=== PATIENT | male | born 1970 | race Caucasian/White ===

== ENCOUNTER 2017-10-30 22:51 | Emergency (ER) | payer SELFPAY ==
[~2017-10-30] VITALS: Ht 172.7 cm; Wt 86.6 kg
[~2017-10-30 22:51] MED LIST: ZOFR4TAB3 SL
[2017-10-30 22:55] VITALS: BP 133/84; PULSE 77; RESP 18; TEMP 98; O2SAT 98
[2017-10-30] MEDS ORDERED: PROPARACAINE HCL 0.5% OPHT SOLN 15 ML BTL EACH EYE ONE (23:15)
--- NOTE | 2017-10-30 23:22 | PD ---
HPI Chief Complaint: Foreign Body Time Seen by Provider: 23:04 Travel History International Travel<30 days: No Contact w/Intl Traveler<30days: No Traveled to known affect area: No History of Present Illness HPI Patient comes in complaining with a sensation of foreign body on his right eye. This has been ongoing since approximately 1600 today when he was drilling into a metal sheet there was some shavings that were flying around and he not have any eye protective gear. Patient states that he has his normal visual acuity, it is just simply a sensation of something in his right eye. Moving the eyes under the eyelid seemed to worsen the sensation, but he is otherwise at his baseline. Denies any alleviating factors. Denies any associated factors such as fever, rash, fluid leaking out of his eye, inability to move his eye, abnormality of his visual acuity, headache/neck pain/chest pain/back pain/abdominal pain/, nausea, vomiting No known drug allergy No significant past medical or surgical history Patient also states that he is not taking any medications on a regular basis. PFSH Past Medical History Medical History: Denies Significant Hx Heart Rhythm Problems: Yes (palpitations) Cardiovascular Problems: Yes (HEART PALPATIONS) Diminished Hearing: No Gastrointestinal Disorders: Yes (DIVERTICULOSIS) Immunizations Current: Yes Tetanus Vaccination: < 5 Years Influenza Vaccination: No Past Surgical History Surgical History: No Previous Surgery Social History Alcohol Use: No Tobacco Use: No Substance Use: No Allergies-Medications (Allergen,Severity, Reaction): Coded Allergies: No Known Allergies (Verified Adverse Reaction, Unknown, 10/30/17) Reported Meds & Prescriptions Reported Meds & Active Scripts Active No Active Prescriptions or Reported Medications Review of Systems General / Constitutional: No: Fever Eyes: Positive: Foreign Body Sensation HENT: No: Headaches Cardiovascular: No: Chest Pain or Discomfort Respiratory: No: Shortness of Breath Gastrointestinal: No: Abdominal Pain Genitourinary: No: Dysuria Musculoskeletal: No: Pain Skin: No Rash Neurologic: No: Weakness Psychiatric: No: Depression Endocrine: No: Polydipsia Hematologic/Lymphatic: No: Easy Bruising Physical Exam Narrative GENERAL: SKIN: Warm and dry. HEAD: Atraumatic. Normocephalic. EYES: Pupils equal and round. No scleral icterus. No injection or drainage. Proparacaine use, fluorescein applied, under UV lamp there is evidence of foreign body approximately 6:00 location however he has partial penetration into the epithelial and I would be unable to simply remove it. Patient will be referred to ophthalmology ENT: No nasal bleeding or discharge. Mucous membranes pink and moist. NECK: Trachea midline. No JVD. CARDIOVASCULAR: Regular rate and rhythm. RESPIRATORY: No accessory muscle use. Clear to auscultation. Breath sounds equal bilaterally. GASTROINTESTINAL: Abdomen soft, non-tender, nondistended. Hepatic and splenic margins not palpable. MUSCULOSKELETAL: Extremities without clubbing, cyanosis, or edema. No obvious deformities. NEUROLOGICAL: Awake and alert. No obvious cranial nerve deficits. Motor grossly within normal limits. Five out of 5 muscle strength in the arms and legs. Normal speech. PSYCHIATRIC: Appropriate mood and affect; insight and judgment normal. Data Data Last Documented VS Vital Signs Date Time Temp Pulse Resp B/P (MAP) Pulse Ox O2 Delivery O2 Flow Rate FiO2 10/30/17 22:55 98.0 77 18 133/84 (100) 98 Orders Orders Proparacaine 0.5% Opth Soln (Alcaine 0.5 (10/30/17 23:15) MDM Medical Decision Making Medical Screen Exam Complete: Yes Emergency Medical Condition: Yes Medical Record Reviewed: Yes Differential Diagnosis Foreign body sensation versus corneal ulcer versus corneal foreign body Narrative Course After evaluation it was noted that he is metallic foreign body was attached partially to the epithelium to making it difficult to remove simply, so will refer to ophthalmology for proper removal. Diagnosis Primary Impression: Right eye metallic foreign body Referrals: Amee Luo MD For proper removal of your metallic foreign body Patient Instructions: Eye Foreign Body (GEN), General Instructions Scripts Bacitracin Opth Oint (Bacitracin Opth Oint) 500 Unit/Gm Oint 1 APPLIC RIGHT EYE BID for Infection, #1 TUBE 0 Refills Prov: Victor M Munoz MD 10/30/17 Disposition: 01 DISCHARGE HOME Condition: Stable Victor M Munoz MD October 30, 2017 23:22
[2017-10-30] MEDS ORDERED: BACIOIN6 RIGHT EYE (23:48)
== END 2017-10-30 23:58 | disposition home or self-care (01) ==
LOC: PHED 22:51
DX: T15.91XA Foreign body on external eye, part unspecified, right eye, initial encounter (principal); Z87.19 Personal history of other diseases of the digestive system; W22.8XXA Striking against or struck by other objects, initial encounter
CPT/HCPCS: 99283

== ENCOUNTER 2017-11-02 08:53 | Emergency (ER) | payer SELFPAY ==
[~2017-11-02] VITALS: Ht 172.7 cm; Wt 85.7 kg
[~2017-11-02 08:53] MED LIST changes: +BACIOIN6 RIGHT EYE; -ZOFR4TAB3 SL
[2017-11-02 08:56] VITALS: BP 141/89; PULSE 84; RESP 16; TEMP 98; O2SAT 98
--- NOTE | 2017-11-02 09:39 | PD ---
HPI Chief Complaint: Cardiac Complaint Time Seen by Provider: 09:39 Travel History International Travel<30 days: No Contact w/Intl Traveler<30days: No Traveled to known affect area: No History of Present Illness HPI 47-year-old male came to the emergency room with history of sudden onset palpitations, dizziness and lightheadedness while he was at the automobile locator office getting his eye exam this morning. Patient was seen in the emergency room couple days ago for a foreign body in cornea and was asked to follow-up with automobile locator. This morning he was at the automobile locator office when the incidence started to happen at around 8:30 AM. He eventually drove himself to the emergency room. Patient says he has history of palpitations and few years ago he had something similar and had a workup done by the professor of exercise science. Workup was negative. This was in [place]. He does not see that professor of exercise science anymore. Patient says currently he says feels just a little weak but otherwise fine. He is feeling the palpitations once in a blue booker while he is laying here. No history of chest pain. No history of syncopal episode. Vital signs are stable otherwise. Patient is not on any medications on a daily basis as per him. [facility] Past Medical History Narrative Medical List of his past medical, surgical, social and family history is reviewed from the nursing note. Heart Rhythm Problems: Yes (palpitations) Cardiovascular Problems: Yes (HEART PALPATIONS) Diminished Hearing: No Gastrointestinal Disorders: Yes (DIVERTICULOSIS) Immunizations Current: Yes Influenza Vaccination: No Social History Alcohol Use: No Tobacco Use: No Substance Use: No Allergies-Medications (Allergen,Severity, Reaction): Coded Allergies: No Known Allergies (Verified Adverse Reaction, Unknown, 11/02/17) Comments No known drug allergies. Reported Meds & Prescriptions Reported Meds & Active Scripts Active No Active Prescriptions or Reported Medications Narrative Medication List of his home medications reviewed from the nursing note. Review of Systems Except as stated in HPI: all other systems reviewed are Neg HENT: Positive: Lightheadedness Cardiovascular: Positive: Palpitations Physical Exam Narrative GENERAL: Awake, alert, no obvious distress SKIN: Focused skin assessment warm/dry. HEAD: Atraumatic. Normocephalic. EYES: Pupils equal and round. No scleral icterus. No injection or drainage. ENT: No nasal bleeding or discharge. Mucous membranes pink and moist. NECK: Trachea midline. No JVD. CARDIOVASCULAR: Regular rate and rhythm. No murmur appreciated. RESPIRATORY: No accessory muscle use. Clear to auscultation. Breath sounds equal bilaterally. GASTROINTESTINAL: Abdomen soft, non-tender, nondistended. Hepatic and splenic margins not palpable. MUSCULOSKELETAL: No obvious deformities. No clubbing. No cyanosis. No edema. NEUROLOGICAL: Awake and alert. No obvious cranial nerve deficits. Motor grossly within normal limits. Normal speech. PSYCHIATRIC: Appropriate mood and affect; insight and judgment normal. Data Data Last Documented VS Vital Signs Date Time Temp Pulse Resp B/P (MAP) Pulse Ox O2 Delivery O2 Flow Rate FiO2 11/02/17 10:58 11/02/17 10:50 68 16 94 Room Air 11/02/17 08:56 98.0 Orders Orders Electrocardiogram (11/02/17 09:44) Basic Metabolic Panel (Bmp) (11/02/17 09:44) Complete Blood Count With Diff (11/02/17 09:44) Magnesium (Mg) (11/02/17 09:44) Prothrombin Time / Inr (Pt) (11/02/17 09:44) Troponin I (11/02/17 09:44) Ecg Monitoring (11/02/17 09:44) Bilateral Bp Monitoring (11/02/17 09:44) Iv Access Insert/Monitor (11/02/17 09:44) Oximetry (11/02/17 09:44) Oxygen Administration (11/02/17 09:44) Sodium Chloride 0.9% Flush (Ns Flush) (11/02/17 09:45) Sodium Chlorid 0.9% 500 Ml Inj (Ns 500 M (11/02/17 09:45) Chest, Pa & Lat (11/02/17 09:44) Ed Discharge Order (11/02/17 10:38) Labs Laboratory Tests Test 11/02/17 09:56 White Blood Count 4.9 TH/MM3 Red Blood Count 4.75 MIL/MM3 Hemoglobin 14.1 GM/DL Hematocrit 42.4 % Mean Corpuscular Volume 89.4 FL Mean Corpuscular Hemoglobin 29.6 PG Mean Corpuscular Hemoglobin Concent 33.1 % Red Cell Distribution Width 12.9 % Platelet Count 187 TH/MM3 Mean Platelet Volume 6.8 FL Neutrophils (%) (Auto) 72.2 % Lymphocytes (%) (Auto) 18.6 % Monocytes (%) (Auto) 6.8 % Eosinophils (%) (Auto) 1.8 % Basophils (%) (Auto) 0.6 % Neutrophils # (Auto) 3.6 TH/MM3 Lymphocytes # (Auto) 0.9 TH/MM3 Monocytes # (Auto) 0.3 TH/MM3 Eosinophils # (Auto) 0.1 TH/MM3 Basophils # (Auto) 0.0 TH/MM3 CBC Comment DIFF FINAL Differential Comment Prothrombin Time 10.7 SEC Prothromb Time International Ratio 1.1 RATIO Blood Urea Nitrogen 29 MG/DL Creatinine 0.89 MG/DL Random Glucose 132 MG/DL Calcium Level 8.3 MG/DL Magnesium Level 2.0 MG/DL Sodium Level 141 MEQ/L Potassium Level 4.0 MEQ/L Chloride Level 108 MEQ/L Carbon Dioxide Level 27.3 MEQ/L Anion Gap 6 MEQ/L Estimat Glomerular Filtration Rate 91 ML/MIN Troponin I LESS THAN 0.02 NG/ML MDM Medical Decision Making Medical Screen Exam Complete: Yes Emergency Medical Condition: Yes Medical Record Reviewed: Yes Interpretation(s) Twelve-lead EKG was reviewed by me. Normal sinus rhythm, normal axis, nonspecific ST-T wave changes, occasional PACs. Heart rate of 87 bpm. Differential Diagnosis Electrolyte abnormality, ACS, PVCs Narrative Course 10:36 AM blood test results are back and within normal limit. I am comfortable discharging the patient home. He needs to follow-up with his primary care and have a Holter monitor placed. Procedures EKG Prior to Arrival: No Diagnosis Primary Impression: Palpitations Additional Impression: Near syncope Referrals: Primary Care Physician Additional Instructions: Drink lots of fluid. Stay away from coffee or caffeinated beverages. Follow- up with your primary care. Your primary care needs to put you on a Holter monitor. Return to the ER if condition worsens or any other new concerns. Med/Other Pt SpecificInfo: No Change to Meds Scripts No Active Prescriptions or Reported Meds Disposition: 01 DISCHARGE HOME Condition: Stable Kalina Villegas MD November 02, 2017 09:39
[2017-11-02] MEDS ORDERED: SODIUM CHLORIDE 0.9% FLUSH 10 ML FLUSH IVF PRN (09:45)
[2017-11-02] MEDS ORDERED: SODIUM CHLORID 0.9% 500 ML INJ 500 ML IV ONE (09:45)
[2017-11-02 09:55] VITALS: O2SAT 98
[2017-11-02 10:02] LABS: AUTOMATED NEUTROPHIL # 3.6 TH/MM3 (1.8-7.7); BASOPHIL % 0.6 % (0.0-2.0); EOSINOPHIL # 0.1 TH/MM3 (0-0.4); EOSINOPHIL % 1.8 % (0.0-4.0); HEMATOCRIT 42.4 % (39.0-51.0); HEMOGLOBIN 14.1 GM/DL (13.0-17.0); LYMPH % 18.6 % (9.0-44.0); LYMPHOCYTE # 0.9 TH/MM3 (1.0-4.8); MEAN CELL VOLUME 89.4 FL (80.0-100.0); MEAN CORPUSCULAR HEMOGLOBIN 29.6 PG (27.0-34.0); MEAN CORPUSCULAR HGB CONC 33.1 % (32.0-36.0); MEAN PLATELET VOLUME 6.8 FL (7.0-11.0); MONO % 6.8 % (0.0-8.0); MONOCYTE # 0.3 TH/MM3 (0-0.9); NEUT % 72.2 % (16.0-70.0); PLATELET COUNT 187 TH/MM3 (150-450); RED BLOOD COUNT 4.75 MIL/MM3 (4.50-5.90); RED CELL DISTRIBUTION WIDTH 12.9 % (11.6-17.2); WHITE BLOOD COUNT 4.9 TH/MM3 (4.0-11.0)
[2017-11-02 10:09] VITALS: BP 140/80; PULSE 72; RESP 16; O2SAT 94
[2017-11-02 10:15] LABS: CHLORIDE 108 MEQ/L (98-107); SODIUM (NA) 141 MEQ/L (136-145)
[2017-11-02 10:17] LABS: INTERNATIONAL NORMALIZED RATIO 1.1 RATIO; PROTHROMBIN TIME - PATIENT 10.7 SEC (9.8-11.6)
[2017-11-02 10:19] LABS: BICARBONATE 27.3 MEQ/L (21.0-32.0); BLOOD UREA NITROGEN 29 MG/DL (7-18); CALCIUM 8.3 MG/DL (8.5-10.1); GLUCOSE,RANDOM 132 MG/DL (74-106)
[2017-11-02 10:23] LABS: CREATININE 0.89 MG/DL (0.60-1.30); GLOMERULAR FILTRATION RATE 91 ML/MIN (>89)
[2017-11-02 10:28] LABS: TROPONIN I LESS THAN 0.02 NG/ML (0.02-0.05)
--- NOTE | 2017-11-02 10:37 | RADRPT ---
EXAM DATE: 11/02/2017 10:23 AM EDT AGE/SEX: 47 years / Male INDICATIONS: Nausea and dizziness for 1 hour. CLINICAL DATA: This is the patient's initial encounter. Patient reports that signs and symptoms have been present for 1 day and indicates a pain score of 2/10. MEDICAL/SURGICAL HISTORY: None. None. COMPARISON: HPO, CHEST PA & LAT, 09/13/2015. . FINDINGS: PA and lateral views of the chest demonstrate the lungs to be symmetrically aerated without evidence of mass, infiltrate or effusion. The cardiomediastinal contours are unremarkable. Osseous structures are intact. There is no evidence of free air. CONCLUSION: No acute cardiopulmonary disease. Electronically signed by: Chon Frances MD 11/02/2017 10:36 AM EDT
[2017-11-02 10:50] VITALS: BP 120/68; PULSE 68; RESP 16; O2SAT 94
--- NOTE | 2017-11-02 13:54 | EKG ---
Date Performed: 11/02/2017 Time Performed: 09:05:12 PTAGE: 47 years EKG: Sinus rhythm WITH OCCASIONAL SUPRAVENTRICULAR PREMATURE COMPLEXES INCOMPLETE RIGHT BUNDLE BRANCH BLOCK BORDERLINE ECG PREVIOUS TRACING : 09/23/2015 19.46 DOCTOR: Marc Crowder Interpretating Date/Time 11/02/2017 13:52:46
== END 2017-11-02 10:59 | disposition home or self-care (01) ==
LOC: PHED 08:53
DX: R00.2 Palpitations (principal); R55 Syncope and collapse; R42 Dizziness and giddiness; I45.10 Unspecified right bundle-branch block; Z87.19 Personal history of other diseases of the digestive system
CPT/HCPCS: 71046; 80048; 83735; 84484; 85025; 85610; 93005; 96360; 99285; J7040

== ENCOUNTER 2018-06-16 18:30 | Observation (INO) ==
--- NOTE | 2018-06-16 18:55 | ED ---
HPI General Chief Complaint: Arrhythmia / Palpitations Stated Complaint: Palpatations/Weak Time Seen by Provider: 06/16/18 18:43 Source: patient Mode of arrival: ambulatory Limitations: no limitations History of Present Illness HPI narrative: patient has been experiencing these palpitation episodes but over past 4 weeks or so it would usually resolve on its own...now over last two days patient has been feeling palpitations and now c/o generalized weakness and not feeling well while at work nearly collapsed due to how weak he felt. patient also felt slight chest pressure, but nonsustained and now symptom free. patinet denies n/v/d/cough/runny nose, fever, frequency urinary or dysuria. 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 MD complaint: Reports palpitations Onset (ago): week(s) Duration: intermittent Severity: moderate Context: Reports occurred during rest Associated symptoms: Reports near-syncope Related Data Home Medications Medication Instructions Recorded Confirmed No Known Home Medications 06/16/18 06/16/18 Allergies Allergy/AdvReac Type Severity Reaction Status Date / Time No Known Allergies Allergy Verified 06/16/18 18:31 Review of Systems ROS: all other systems reviewed are negative PMFSH History History Provided By: Patient Medical History Medical History Palpitations (Acute) Social History Social History Substance History: No History of Abuse Smoking Status: Never smoker How Often Do You Have a Drink Containing Alcohol: Never Recent Travel in [facility] within the Last 8 Weeks: No Recent Out of Country Travel within the Last 8 Weeks: No Immunization History Tetanus Immunization: <5 Years Exam Narrative Exam Narrative: GENERAL: middle-aged male patient in no apparent distress. SKIN: Warm and dry. HEAD: Atraumatic. Normocephalic. EYES: Pupils equal and round. No scleral icterus. No injection or drainage. ENT: No nasal bleeding or discharge. Mucous membranes pink and moist. NECK: Trachea midline. No JVD. CARDIOVASCULAR: Regular rate and rhythm. no rubs or gallops RESPIRATORY: No accessory muscle use. Clear to auscultation. Breath sounds equal bilaterally. GASTROINTESTINAL: Abdomen soft, non-tender, nondistended. No rebound or guarding MUSCULOSKELETAL: Extremities without clubbing, cyanosis, or edema. No obvious deformities. NEUROLOGICAL: Awake and alert. No obvious cranial nerve deficits. Motor grossly within normal limits. Five out of 5 muscle strength in the arms and legs. Normal speech. PSYCHIATRIC: Appropriate mood and affect; insight and judgment normal. Course Initial Documented Vital Signs Temperature 98.6 F 06/16/18 18:32 Pulse Rate 78 06/16/18 18:32 Respiratory Rate 16 06/16/18 18:32 Blood Pressure 148/91 H 06/16/18 18:32 Pulse Oximetry 98 06/16/18 18:32 Last Documented Vital Signs Temperature 98.6 F 06/16/18 18:32 Pulse Rate 77 06/16/18 21:24 Respiratory Rate 16 06/16/18 21:24 Blood Pressure 154/78 H 06/16/18 21:24 Pulse Oximetry 99 06/16/18 21:24 Medical Decision Making MDM Narrative Medical decision making narrative: CBC has no evidence of any leukocytosis anemia or left shift, normal platelet count D-dimer is negative Elect lites are within normal limits. Normal kidney liver and pancreatic functions First set of cardiac enzymes negative next Chest x-ray read by radiologist as no acute cardiopulmonary disease TSH screening normal UA is negative for UTI Tox screen negative Alcohol negative Influenza negative Medical Screen Exam Complete: Yes Emergency Medical Condition: Yes Medical Records Medical records reviewed: Yes I reviewed the patient's medical records. Lab Data Lab results reviewed: Yes I reviewed the patient's lab results. Result diagrams: 06/16/18 19:03 06/16/18 19:03 Lab Results 06/16/18 06/16/18 06/16/18 Range/Units 19:03 19:03 19:03 CBC w Diff Auto diff final WBC 7.0 (4.0-11.0) th/mm3 RBC 4.72 (4.50-5.90) mil/mm3 Hgb 14.4 (13.0-17.0) gm/dL Hct 42.1 (39.0-51.0) % MCV 89.2 (80.0-100.0) fL MCH 30.5 (27.0-34.0) pg MCHC 34.2 (32.0-36.0) % RDW 12.3 (11.6-17.2) % Plt Count 235 (150-450) th/mm3 MPV 7.2 (7.0-11.0) fL Neut % (Auto) 69.2 (16.0-70.0) % Lymph % (Auto) 20.1 (9.0-44.0) % Jones % (Auto) 7.7 (0.0-8.0) % Eos % (Auto) 0.6 (0.0-4.0) % Baso % (Auto) 2.4 H (0.0-2.0) % Neut # (Auto) 4.9 (1.8-7.7) th/mm3 Lymph # (Auto) 1.4 (1.0-4.8) th/mm3 Jones # (Auto) 0.5 (0.0-0.9) th/mm3 Eos # (Auto) 0.0 (0.0-0.4) th/mm3 Baso # (Auto) 0.2 (0.0-0.2) th/mm3 WBC Differential . Differential Comment . D-Dimer Quant (PE/DVT) 0.37 (0.00-0.50) mg/L FEU Sodium (136-145) meq/L Potassium (3.5-5.1) meq/L Chloride (98-107) meq/L Carbon Dioxide (21.0-32.0) meq/L Anion Gap (5-15) meq/L BUN (7-18) mg/dL Creatinine (0.60-1.30) mg/dL Estimated GFR (>89) mL/min Random Glucose (74-106) mg/dL Calcium (8.5-10.1) mg/dL Total Bilirubin (0.2-1.0) mg/dL AST (15-37) U/L ALT (12-78) U/L Alkaline Phosphatase (45-117) U/L Total Creatine Kinase (39-308) U/L CK-MB (CK-2) (0.5-3.6) ng/mL Troponin I (0.02-0.05) ng/mL Total Protein (6.4-8.2) g/dL Albumin (3.4-5.0) g/dL TSH 1.230 (0.358-3.740) uIU/mL Urine Color (Yellw/Straw) Urine Clarity (Clear) Urine pH (5.0-8.5) Ur Specific Banner (1.002-1.035) Urine Protein (Neg-Trace) mg/dL Urine Glucose (UA) (Negative) mg/dL Urine Ketones (Negative) mg/dL Urine Occult Blood (Negative) Urine Nitrate (Negative) Urine Bilirubin (Negative) Urine Urobilinogen (Less than 2) mg/dL Ur Leukocyte Esterase (Negative) Urine RBC (0-3) /hpf Urine WBC (0-5) /hpf Ur Squamous Epith Cells (0-5) /hpf Micro UA Comment Ur Microscopic Review Urine Culture Comments Urine Opiates Screen (Neg) Ur Barbiturates Screen (Neg) Ur Amphetamines Screen (Neg) U Benzodiazepines Scrn (Neg) Urine Cocaine Screen (Neg) U Cannabinoids Screen (Neg) Serum Alcohol Less than 3 (0-5) mg/dL 06/16/18 06/16/18 06/16/18 Range/Units 19:03 20:40 20:40 CBC w Diff WBC (4.0-11.0) th/mm3 RBC (4.50-5.90) mil/mm3 Hgb (13.0-17.0) gm/dL Hct (39.0-51.0) % MCV (80.0-100.0) fL MCH (27.0-34.0) pg MCHC (32.0-36.0) % RDW (11.6-17.2) % Plt Count (150-450) th/mm3 MPV (7.0-11.0) fL Neut % (Auto) (16.0-70.0) % Lymph % (Auto) (9.0-44.0) % Jones % (Auto) (0.0-8.0) % Eos % (Auto) (0.0-4.0) % Baso % (Auto) (0.0-2.0) % Neut # (Auto) (1.8-7.7) th/mm3 Lymph # (Auto) (1.0-4.8) th/mm3 Jones # (Auto) (0.0-0.9) th/mm3 Eos # (Auto) (0.0-0.4) th/mm3 Baso # (Auto) (0.0-0.2) th/mm3 WBC Differential Differential Comment D-Dimer Quant (PE/DVT) (0.00-0.50) mg/L FEU Sodium 138 (136-145) meq/L Potassium 3.9 (3.5-5.1) meq/L Chloride 103 (98-107) meq/L Carbon Dioxide 27.2 (21.0-32.0) meq/L Anion Gap 8 (5-15) meq/L BUN 16 (7-18) mg/dL Creatinine 1.10 (0.60-1.30) mg/dL Estimated GFR 71 L (>89) mL/min Random Glucose 109 H (74-106) mg/dL Calcium 8.7 (8.5-10.1) mg/dL Total Bilirubin 0.7 (0.2-1.0) mg/dL AST 20 (15-37) U/L ALT 27 (12-78) U/L Alkaline Phosphatase 37 L (45-117) U/L Total Creatine Kinase 228 (39-308) U/L CK-MB (CK-2) 2.4 (0.5-3.6) ng/mL Troponin I Less than 0.02 L (0.02-0.05) ng/mL Total Protein 7.5 (6.4-8.2) g/dL Albumin 3.7 (3.4-5.0) g/dL TSH (0.358-3.740) uIU/mL Urine Color Yellow (Yellw/Straw) Urine Clarity Clear (Clear) Urine pH 5.5 (5.0-8.5) Ur Specific Banner Greater/equal 1.030 (1.002-1.035) Urine Protein Negative (Neg-Trace) mg/dL Urine Glucose (UA) Negative (Negative) mg/dL Urine Ketones Trace H (Negative) mg/dL Urine Occult Blood Trace (Negative) Urine Nitrate Negative (Negative) Urine Bilirubin Negative (Negative) Urine Urobilinogen 0.2 (Less than 2) mg/dL Ur Leukocyte Esterase Negative (Negative) Urine RBC 0-3 (0-3) /hpf Urine WBC 0-5 (0-5) /hpf Ur Squamous Epith Cells 0-5 (0-5) /hpf Micro UA Comment Culture not ind Ur Microscopic Review Microscopic reviewed Urine Culture Comments Culture not ind Urine Opiates Screen Neg (Neg) Ur Barbiturates Screen Neg (Neg) Ur Amphetamines Screen Neg (Neg) U Benzodiazepines Scrn Neg (Neg) Urine Cocaine Screen Neg (Neg) U Cannabinoids Screen Neg (Neg) Serum Alcohol (0-5) mg/dL Imaging Data Attestation: I personally reviewed and interpreted this imaging study as follows : Radiologist's impression: Chest X-Ray 06/16/18 18:44 CONCLUSION: No acute cardiopulmonary disease. ECG Data EKG Prior to Arrival: No Attestation: I personally reviewed and interpreted this ECG as follows: Prior ECG tracings: not available for review Interpretation: Normal sinus rhythm, 79 bpm, right bundle branch block pattern with slightly prolonged QRS duration Discharge Plan Discharge Disposition Patient Disposition: ED Admit(ED Internal Use Only) Discharge Condition Condition: Stable Discharge Order Discharge Orders: ED Use Only Admit Order (Routine); Ordered 06/16/18 Ordered By: Victor M Munoz Discharge Details Diagnosis: Near syncope, Heart palpitations Physicians Team ED Provider: Victor M Munoz Primary Care Provider: Chon Topete Attending Provider: Skylar Tubbs Discharge Interventions Interventions: Vital Signs Last Done: 06/16/18 18:33 ED Discharge Assessment Last Done: 06/16/18 21:49 Status ED Status: Admitted Observation Patient
--- NOTE | 2018-06-16 18:57 | XR ---
EXAM DATE: 06/16/2018 6:54 PM EST AGE/SEX: 48 years / Male INDICATIONS: Patient complains of heart palpitations, shortness of breath, and weakness. CLINICAL DATA: This is the patient's initial encounter. Patient reports that signs and symptoms have been present for 1 month and indicates a pain score of 0/10. MEDICAL/SURGICAL HISTORY: None. None. COMPARISON: . FINDINGS: The lungs are clear without infiltrate, nodule, or mass. There is no appreciable pleural effusion for technique. Heart and mediastinum are unremarkable. CONCLUSION: No acute cardiopulmonary disease. Electronically signed by: Timoteo Chiang MD Board Certified Radiologist 06/16/2018 6:56 PM EST
[2018-06-16 19:11] LABS: Baso # (Auto) 0.2 th/mm3 (0.0-0.2); Baso % (Auto) 2.4 % (0.0-2.0); Eos % (Auto) 0.6 % (0.0-4.0); Hematocrit 42.1 % (39.0-51.0); Hemoglobin 14.4 gm/dL (13.0-17.0); Lymph # (Auto) 1.4 th/mm3 (1.0-4.8); Lymph % (Auto) 20.1 % (9.0-44.0); Mean Corpuscular HGB Conc 34.2 % (32.0-36.0); Mean Corpuscular Hemoglobin 30.5 pg (27.0-34.0); Mean Corpuscular Volume 89.2 fL (80.0-100.0); Mean Platelet Volume 7.2 fL (7.0-11.0); Mono # (Auto) 0.5 th/mm3 (0.0-0.9); Mono % (Auto) 7.7 % (0.0-8.0); Neut # (Auto) 4.9 th/mm3 (1.8-7.7); Neut % (Auto) 69.2 % (16.0-70.0); Platelet Count 235 th/mm3 (150-450); Red Blood Count 4.72 mil/mm3 (4.50-5.90); Red Cell Distribution Width 12.3 % (11.6-17.2)
[2018-06-16 19:30] LABS: Chloride 103 meq/L (98-107); Potassium 3.9 meq/L (3.5-5.1); Sodium 138 meq/L (136-145)
[2018-06-16 19:34] LABS: Albumin 3.7 g/dL (3.4-5.0); Anion Gap 8 meq/L (5-15); Blood Urea Nitrogen 16 mg/dL (7-18); Calcium 8.7 mg/dL (8.5-10.1); Carbon Dioxide 27.2 meq/L (21.0-32.0); Glucose,Random 109 mg/dL (74-106)
[2018-06-16 19:37] LABS: Alanine Aminotransferase 27 U/L (12-78); Aspartate Aminotransferase 20 U/L (15-37)
[2018-06-16 19:38] LABS: Glomerular Filtration Rate 71 mL/min (>89)
[2018-06-16 19:39] LABS: Total Protein 7.5 g/dL (6.4-8.2)
[2018-06-16 19:40] LABS: Alkaline Phosphatase 37 U/L (45-117); Creatine Kinase 228 U/L (39-308)
[2018-06-16 19:53] LABS: Creatine Kinase MB 2.4 ng/mL (0.5-3.6)
[2018-06-16 20:49] LABS: Bilirubin,Urine Negative (Negative); Clarity,Urine Clear (Clear); Color,Urine Yellow (Yellw/Straw); Glucose,Urine (UA) Negative (Negative); Leukocyte Esterase,Urine Negative (Negative); Nitrite,Urine Negative (Negative); PH,Urine 5.5 (5.0-8.5); Specific Gravity,Urine Greater/Equal 1.030 (1.002-1.035); Urobilinogen,Urine 0.2 mg/dL (Less than 2)
[2018-06-16 20:53] LABS: WBC,Urine 0-5 /hpf (0-5)
[2018-06-16 20:54] LABS: RBC,Urine 0-3 /hpf (0-3); Squamous Epithelial Cell,Urine 0-5 /hpf (0-5)
[2018-06-16 20:56] LABS: Barbiturate Screen,Urine Neg (Neg)
[2018-06-16 20:57] LABS: Amphetamine Screen,Urine Neg (Neg); Cannabinoid Screen,Urine Neg (Neg); Cocaine Screen,Urine Neg (Neg)
[2018-06-16 21:00] LABS: Opiate Screen,Urine Neg (Neg)
[2018-06-16] MEDS ORDERED: Temazepam 15 MG Capsule PO PRN (21:24)
[2018-06-16 22:03] LABS: Creatine Kinase 210 U/L (39-308)
[2018-06-17 01:10] LABS: Creatine Kinase 215 U/L (39-308)
--- NOTE | 2018-06-17 08:03 | P.HP ---
History of Present Illness Primary Care Physician: Chon Grier MD Chief Complaint: Chest pain History of Present Illness: This is a 48-year-old male patient with no known medical history presented to the ED with complaints of palpitations as well as some intermittent chest pain. He states that over the past month he has had intermittent palpitations and overall fatigue. He states that these palpitations occur randomly usually while he is at work and more active. He states that when they come on the last roughly all day and then go away at night. He denies any associated nausea, vomiting or sweating. He does admit to slight shortness of breath with these palpitations states that he needs to take a deeper breath with them. Patient states that with these palpitations he also has some midsternal chest discomfort although this is not every time the palpitations occur. He does state that he is having similar complaints roughly 6 years ago and at that time underwent a stress test which was reportedly unremarkable. At that time he followed with a molder although has not seen 1 in several years. He states that he seen his primary care physician about the said complaints, he has been referred to molder, Dr. Garcia, although has not set an appointment yet with him. Denies any history of arrhythmias. Is not on any medications at home. Denies any tobacco abuse. Family history unremarkable. Denies any recent illness including fever, chills, cough, headache, dumping, nausea, vomiting, diarrhea or dysuria. - Diagnosis (1) Near syncope (2) Heart palpitations Review of Systems All other systems reviewed negative except as stated in HPI [facility] - History History Provided By: Patient - Medical / Surgical Hx Neg / Unobtainable Surgical History: No Previous Surgery - Medical History Medical History: Medical History (Last Reviewed 06/17/18 @ 10:15 by Beverley Laguna) Palpitations - Family History Family History: Family History (Last Updated 06/17/18 @ 10:15 by Beverley Laguna) Other Family history in first degree relatives is unremarkable - Tobacco History Second Hand Smoke Exposure: No Smoking Status: Never smoker - Alcohol History How Often Do You Have a Drink Containing Alcohol: Never - Substance Use History Substance History: No History of Abuse - Travel History Recent Travel in the [place] Within the Last 8 Weeks: No Recent Travel Out of the Country Within the Last 8 Weeks: No - Immunization History Tetanus Immunization: <5 Years Medications and Allergies Active Medications: Active Medications Nitroglycerin (Nitrostat Sl) 0.4 mg SL Q5M PRN PRN Reason: CHEST PAIN Ondansetron HCl (Zofran Inj) 4 mg IV.PUSH Q6H PRN PRN Reason: NAUSEA Sodium Chloride (Ns Flush) 2 ml IV.FLUSH UNSCH PRN PRN Reason: FLUSH AFTER USING IV ACCESS Sodium Chloride (Ns Flush) 2 ml IV.FLUSH BID HERBERT Sodium Chloride (Ns Flush) 2 ml IV.FLUSH PRN PRN PRN Reason: FLUSH AFTER USING IV ACCESS Temazepam (Restoril) 15 mg PO HS PRN PRN Reason: INSOMNIA Allergies Allergy/AdvReac Type Severity Reaction Status Date / Time No Known Allergies Allergy Verified 06/16/18 18:31 Home Medications Medication Instructions Recorded Confirmed Type No Known Home Medications 06/16/18 06/16/18 History Exam Vital signs: Vital Signs 06/16/18 18:32 06/16/18 18:33 06/16/18 19:12 Temperature 98.6 F Pulse Rate 78 79 Respiratory Rate 16 16 18 Blood Pressure 148/91 H 142/85 H Pulse Oximetry 98 98 06/16/18 20:47 06/16/18 21:24 06/16/18 22:00 Temperature Pulse Rate 68 77 69 Respiratory Rate 16 16 Blood Pressure 127/65 154/78 H Pulse Oximetry 98 99 06/16/18 22:26 06/17/18 00:00 06/17/18 04:00 Temperature 97.7 F 97.2 F L 97.2 F L Pulse Rate 67 70 63 Respiratory Rate 20 20 20 Blood Pressure 153/87 H 122/76 115/96 H Pulse Oximetry 96 97 97 Intake & Output 06/16/18 06/17/18 06/17/18 18:59 06:59 18:59 Intake Total 0 / 0 Balance 0 / 0 Weight 83 kg 82.2 kg Intake: Oral 0 / 0 Other: # Voids 1 Weight On Admission 82.3 kg Narrative: GENERAL: Well-developed, well-nourished patient in [facility]. SKIN: Warm and dry. No rash. HEAD: Normocephalic. Atraumatic. EYES: Pupils equal and round. No scleral icterus. No injection or drainage. ENT: No nasal bleeding or discharge. Mucous membranes pink and moist. NECK: Supple. Trachea midline. CARDIOVASCULAR: Regular rate and rhythm. S1, S2 noted. No murmur appreciated. RESPIRATORY: No accessory muscle use. Clear to auscultation. Breath sounds equal bilaterally. GASTROINTESTINAL: Abdomen soft, non-tender, nondistended. Normoactive bowel sounds x4. MUSCULOSKELETAL: No obvious deformities. Extremities without clubbing, cyanosis , or edema. NEUROLOGICAL: Awake and alert. No obvious cranial nerve deficits. Motor grossly within normal limits. 5/5 muscle strength in bilateral upper and lower extremities. Normal speech. PSYCHIATRIC: Appropriate mood and affect; insight and judgment normal. Results - Labs CBC & Chem 7: 06/16/18 19:03 06/16/18 19:03 Labs: Laboratory Results - last 24 hr 06/16/18 06/16/18 06/16/18 19:03 19:03 19:03 CBC w Diff Auto diff final WBC 7.0 RBC 4.72 Hgb 14.4 Hct 42.1 MCV 89.2 MCH 30.5 MCHC 34.2 RDW 12.3 Plt Count 235 MPV 7.2 Neut % (Auto) 69.2 Lymph % (Auto) 20.1 Brewster % (Auto) 7.7 Eos % (Auto) 0.6 Baso % (Auto) 2.4 H Neut # (Auto) 4.9 Lymph # (Auto) 1.4 Brewster # (Auto) 0.5 Eos # (Auto) 0.0 Baso # (Auto) 0.2 WBC Differential . Differential Comment . D-Dimer Quant (PE/DVT) 0.37 Sodium Potassium Chloride Carbon Dioxide Anion Gap BUN Creatinine Estimated GFR Random Glucose Calcium Total Bilirubin AST ALT Alkaline Phosphatase Total Creatine Kinase CK-MB (CK-2) Troponin I Total Protein Albumin TSH 1.230 Urine Color Urine Clarity Urine pH Ur Specific Oxford Urine Protein Urine Glucose (UA) Urine Ketones Urine Occult Blood Urine Nitrate Urine Bilirubin Urine Urobilinogen Ur Leukocyte Esterase Urine RBC Urine WBC Ur Squamous Epith Cells Micro UA Comment Ur Microscopic Review Urine Culture Comments Urine Opiates Screen Ur Barbiturates Screen Ur Amphetamines Screen U Benzodiazepines Scrn Urine Cocaine Screen U Cannabinoids Screen Serum Alcohol Less than 3 06/16/18 06/16/18 06/16/18 19:03 20:40 20:40 CBC w Diff WBC RBC Hgb Hct MCV MCH MCHC RDW Plt Count MPV Neut % (Auto) Lymph % (Auto) Brewster % (Auto) Eos % (Auto) Baso % (Auto) Neut # (Auto) Lymph # (Auto) Brewster # (Auto) Eos # (Auto) Baso # (Auto) WBC Differential Differential Comment D-Dimer Quant (PE/DVT) Sodium 138 Potassium 3.9 Chloride 103 Carbon Dioxide 27.2 Anion Gap 8 BUN 16 Creatinine 1.10 Estimated GFR 71 L Random Glucose 109 H Calcium 8.7 Total Bilirubin 0.7 AST 20 ALT 27 Alkaline Phosphatase 37 L Total Creatine Kinase 228 CK-MB (CK-2) 2.4 Troponin I Less than 0.02 L Total Protein 7.5 Albumin 3.7 TSH Urine Color Yellow Urine Clarity Clear Urine pH 5.5 Ur Specific Oxford Greater/equal 1.030 Urine Protein Negative Urine Glucose (UA) Negative Urine Ketones Trace H Urine Occult Blood Trace Urine Nitrate Negative Urine Bilirubin Negative Urine Urobilinogen 0.2 Ur Leukocyte Esterase Negative Urine RBC 0-3 Urine WBC 0-5 Ur Squamous Epith Cells 0-5 Micro UA Comment Culture not ind Ur Microscopic Review Microscopic reviewed Urine Culture Comments Culture not ind Urine Opiates Screen Neg Ur Barbiturates Screen Neg Ur Amphetamines Screen Neg U Benzodiazepines Scrn Neg Urine Cocaine Screen Neg U Cannabinoids Screen Neg Serum Alcohol 06/16/18 06/17/18 21:39 00:30 CBC w Diff WBC RBC Hgb Hct MCV MCH MCHC RDW Plt Count MPV Neut % (Auto) Lymph % (Auto) Brewster % (Auto) Eos % (Auto) Baso % (Auto) Neut # (Auto) Lymph # (Auto) Brewster # (Auto) Eos # (Auto) Baso # (Auto) WBC Differential Differential Comment D-Dimer Quant (PE/DVT) Sodium Potassium Chloride Carbon Dioxide Anion Gap BUN Creatinine Estimated GFR Random Glucose Calcium Total Bilirubin AST ALT Alkaline Phosphatase Total Creatine Kinase 210 215 CK-MB (CK-2) Troponin I Less than 0.02 L Less than 0.02 L Total Protein Albumin TSH Urine Color Urine Clarity Urine pH Ur Specific Oxford Urine Protein Urine Glucose (UA) Urine Ketones Urine Occult Blood Urine Nitrate Urine Bilirubin Urine Urobilinogen Ur Leukocyte Esterase Urine RBC Urine WBC Ur Squamous Epith Cells Micro UA Comment Ur Microscopic Review Urine Culture Comments Urine Opiates Screen Ur Barbiturates Screen Ur Amphetamines Screen U Benzodiazepines Scrn Urine Cocaine Screen U Cannabinoids Screen Serum Alcohol - Imaging Impressions Chest X-Ray 06/16/18 18:44 CONCLUSION: No acute cardiopulmonary disease. Caprini VTE Risk Assessment Caprini VTE Risk Assessment: No/Low Risk (score <= 1) Caprini Risk Assessment Model: Point Value = 1 Point Value = 2 Point Value = 3 Point Value = 5 Age 41-60 Minor surgery BMI > 25 kg/m2 Swollen legs Varicose veins or History of unexplained or recurrent spontaneous Oral contraceptives or hormone replacement Sepsis (< 1 month) Serious lung disease, including pneumonia (< 1 month) Abnormal pulmonary function Acute myocardial infarction Congestive heart failure (< 1 month) History of inflammatory bowel disease Medical patient at bed rest Age 61-74 Arthroscopic surgery Major open surgery (> 45 min) Laparoscopic surgery (> 45 min) Malignancy Confined to bed (> 72 hours) Immobilizing plaster cast Central venous access Age >= 75 History of VTE Family history of VTE Factor V Leiden Prothrombin [id number] Lupus anticoagulant Anticardiolipin antibodies Elevated serum homocysteine Heparin-induced thrombocytopenia Other congenital or acquired thrombophilia Stroke (< 1 month) Elective arthroplasty Hip, pelvis, or leg fracture Acute spinal cord injury (< 1 month) Prophylaxis Regimen: Total Risk Factor Score Risk Level Prophylaxis Regimen 0-1 Low Early ambulation 2 Moderate Order ONE of the following: *Sequential Compression Device (SCD) *Heparin 5000 units SQ BID 3-4 Higher Order ONE of the following medications: *Heparin 5000 units SQ TID *Enoxaparin/Lovenox 40 mg SQ daily (WT < 150 kg, CrCl > 30 mL/min) *Enoxaparin/Lovenox 30 mg SQ daily (WT < 150 kg, CrCl > 10-29 mL/min) *Enoxaparin/Lovenox 30 mg SQ BID (WT < 150 kg, CrCl > 30 mL/min) AND/OR *Sequential Compression Device (SCD) 5 or more Highest Order ONE of the following medications: *Heparin 5000 units SQ TID (Preferred with Epidurals) *Enoxaparin/Lovenox 40 mg SQ daily (WT < 150 kg, CrCl > 30 mL/min) *Enoxaparin/Lovenox 30 mg SQ daily (WT < 150 kg, CrCl > 10-29 mL/min) *Enoxaparin/Lovenox 30 mg SQ BID (WT < 150 kg, CrCl > 30 mL/min) AND *Sequential Compression Device (SCD) Assessment and Plan - Assessment (1) Near syncope Code(s): R55 - Syncope and collapse Status: Acute (2) Heart palpitations Code(s): R00.2 - Palpitations Status: Acute - Plan This is a pleasant 48-year-old male patient with no known medical history presented to the ED with complaints of palpitations and mild intermittent chest discomfort and near syncopal episode at home. Palpitations Intermittent chest discomfort -Patient has been admitted to the chest pain center for observation. Serial EKGs and serial troponins have been ordered for ruling out ACS purposes. -Troponin trend flat. EKG reviewed showing controlled heart rate with no ST changes indicating ischemia, right bundle branch block noted. -CBC and BMP reviewed, essentially unremarkable. UA negative. Tox screen negative. TSH negative. Patient states that his lipid panel was normal when he visited his primary care physician last month. -Continued on cardiac telemetry overnight, reviewed with no arrhythmias noted. Will continue to monitor. -Chest x-ray reviewed, essentially unremarkable no acute cardiopulmonary disease. -ACS has been ruled out with serial EKGs and serial troponins, patient will undergo a cardiac nuclear stress test to further rule out any ischemia. -Further hospitalization and treatment plan will depend on nuclear imaging results. -Patient stable at this time and agreeable to plan. Near syncopal episode -Patient complains that he has been fatigued over the past month with a near collapse at work yesterday. -Continued on cardiac telemetry to rule out any arrhythmia cause. None overnight. -Will add an echocardiogram, patient denies ever having one in the past. -Check carotid US. -Ensure hydration, continue IV fluids. DVT prophylaxis: SCDs.
[2018-06-17 09:26] VITALS: O2SAT 95
[2018-06-17] MEDS ORDERED: Sod Chloride 0.9% Inj 1,000 ML IV.CONT SCH (10:30)
--- NOTE | 2018-06-17 10:44 | ECG ---
Date Performed: 06/16/2018 Time Performed: 21:31:27 PTAGE: 48 years EKG: Sinus rhythm RIGHT BUNDLE BRANCH BLOCK ABNORMAL ECG PREVIOUS TRACING : 06/16/2018 18.44 Since previous tracing, no significant change noted DOCTOR: Chris San Interpretating Date/Time 06/17/2018 10:44:00
--- NOTE | 2018-06-17 10:46 | ECG ---
Date Performed: 06/16/2018 Time Performed: 18:44:12 PTAGE: 48 years EKG: Sinus rhythm INDETERMINATE AXIS RIGHT BUNDLE BRANCH BLOCK ABNORMAL ECG INTERPRETATION BASED ON A DEFAULT AGE OF 4 0 YEARS PREVIOUS TRACING : 11/02/2017 09.05 Since previous tracing, no significant change noted DOCTOR: Chris San Interpretating Date/Time 06/17/2018 10:45:05
--- NOTE | 2018-06-17 10:48 | ECG ---
Date Performed: 06/17/2018 Time Performed: 00:27:12 PTAGE: 48 years EKG: Sinus rhythm INDETERMINATE AXIS RIGHT BUNDLE BRANCH BLOCK ABNORMAL ECG PREVIOUS TRACING : 06/16/2018 21.31 Since previous tracing, no significant change noted DOCTOR: Chris San Interpretating Date/Time 06/17/2018 10:47:18
[2018-06-17] MEDS ORDERED: Regadenoson Inj 0.4 MG/5 ML Syringe IV.PUSH ONE (11:22)
--- NOTE | 2018-06-17 12:40 | NM ---
EXAM DATE: 06/17/2018 12:24 PM EST AGE/SEX: 48 years / Male INDICATIONS:Angina. Right bundle branch block Mid chest pain for one day. CLINICAL DATA: This is the patient's initial encounter. Patient reports that signs and symptoms have been present for 1 day and indicates a pain score of 5/10. MEDICAL/SURGICAL HISTORY: None. None. COMPARISON: No prior exams available for comparison. No external comparison. DOSE: 8.7 mCi Tc 99m Myoview at rest 26.8 mCi [id number] at stress 0.4 mg Lexiscan STRESS SYMPTOMS: Shortness of breath and flush. EJECTION FRACTION: 69 % TECHNIQUE: The patient underwent pharmacologic stress with infusion of prescribed dose. Continuous ECG tracing was monitored during stress. Gated SPECT imaging was performed after stress and conventi onal SPECT imaging was performed at rest. The examination was performed on a SPECT/CT scanner, both attenuation and non-corrected datasets were reviewed. FINDINGS: Distribution: The maximum perfused segment at stress is in the anterior wall. Perfusion Study: The pattern of perfusion at stress is within normal limits. Gated Study: There are intact wall motion and wall thickening without hypokinetic or dyskinetic segm ents. The ejection fraction is calculated at 69%. RISK CATEGORY: Low (<1% Annual Mortality Rate) CONCLUSION: 1. Negative examination. Electronically signed by: Gianna Hernandez MD Board Certified Radiologist 06/17/2018 12:39 PM ROMA Saenz
[2018-06-17] MEDS ORDERED: Ibuprofen 400 MG Tablet PO PRN (14:54)
--- NOTE | 2018-06-17 15:47 | US ---
EXAM DATE: 06/17/2018 3:26 PM EST AGE/SEX: 48 years / Male INDICATIONS: Syncope. CLINICAL DATA: This is the patient's initial encounter. Patient reports that signs and symptoms have been present for 1 day and indicates a pain score of 0/10. MEDICAL/SURGICAL HISTORY: . Palpitations. None. COMPARISON: No prior exams available for comparison. VELOCITY PARAMETERS: ICA/CCA Ratio: Right 0.93 , Left 0.83 ICA: Right 122 cm/sec, Left 116 cm/sec CCA: Right 131 cm/sec, Left 140 cm/sec ECA: Right 150 cm/sec, Left 113 cm/sec Vertebral: Right 68 cm/sec antegrade, Left 60 cm/sec antegrade FINDINGS: Right Carotid: No significant plaque is visualized.The waveforms are within normal limits. Left Carotid: No significant plaque is visualized. The waveforms are within normal limits. Other: None. CONCLUSION: 1. Right Internal Carotid Artery: No significant atherosclerotic plaquing. Elevated velocities in th e right external may represent a mild to moderate stenosis in this vessel. Otherwise, no sonographic or Doppler findings of a hemodynamically significant stenosis in the internal. 2. Left Internal Carotid Artery: No significant atherosclerotic plaquing. No sonographic or Doppler findings of a hemodynamically significant stenosis. 3. Antegrade flow in both vertebral arteries. Electronically signed by: Sanchez Dee MD Board Certified Radiologist 06/17/2018 3:45 PM EST
[2018-06-17 16:47] VITALS: BP 133/73; RESP 21; TEMP 97.1
[2018-06-17 17:55] VITALS: PULSE 75
--- NOTE | 2018-06-17 17:59 | ECHRPT ---
Indication: SYNCOPE, PALPATATIONS CONCLUSIONS Normal left ventricular size. Mild concentric left ventricular hypertrophy. The left ventricular systolic function is hyperdynamic with an estimated ejection fraction in the ra nge of 60- 65%. There is trace tricuspid valve regurgitation. BP: / HR: Rhythm: Sinus MEASUREMENTS (Male / Female) Normal Values Technical Quality:Fair 2D ECHO LV Diastolic Diameter PLAX 4.0 cm 4.2 - 5.9 / 3.9 - 5.3 cm LV Systolic Diameter PLAX 2.6 cm IVS Diastolic Thickness 1.4 cm 0.6 - 1.0 / 0.6 - 0.9 cm LVPW Diastolic Thickness 1.3 cm 0.6 - 1.0 / 0.6 - 0.9 cm LV Relative Wall Thickness 0.7 RV Internal Dim ED PLAX 2.3 cm LVOT Diameter 2.5 cm Aortic Root Diameter 3.5 cm LA Systolic Diameter LX 3.6 cm 3.0 - 4.0 / 2.7 - 3.8 cm M-MODE AV Cusp Separation MM 2.2 cm DOPPLER AV Peak Velocity 136.0 cm/s AV Peak Gradient 7.4 mmHg AV Mean Gradient 4.0 mmHg AV Velocity Time Integral 22.1 cm LVOT Peak Velocity 112.0 cm/s LVOT Peak Gradient 5.0 mmHg LVOT Velocity Time Integral 18.0 cm AV Area Cont Eq vti 4.0 cm AV Area Cont Eq pk 4.0 cm Mitral E Point Velocity 62.7 cm/s Mitral A Point Velocity 44.9 cm/s Mitral E to A Ratio 1.4 LV E' Lateral Velocity 16.0 cm/s Mitral E to LV E' Lateral Ratio 3.9 LV E' Septal Velocity 7.0 cm/s Mitral E to LV E' Septal Ratio 8.9 TR Peak Velocity 213.0 cm/s TR Peak Gradient 18.1 mmHg Right Atrial Pressure 10.0 mmHg Pulmonary Artery Systolic Pressu 28.1 mmHg Right Ventricular Systolic Press 28.1 mmHg PV Peak Velocity 102.0 cm/s PV Peak Gradient 4.2 mmHg FINDINGS LEFT VENTRICLE Normal left ventricular size. Mild concentric left ventricular hypertrophy. The left ventricular systolic function is hyperdynamic with an estimated ejection fraction in the ra nge of 60- 65%. RIGHT VENTRICLE Normal right ventricular size and systolic function. LEFT ATRIUM The left atrial size is normal. RIGHT ATRIUM The right atrial size is normal. ATRIAL SEPTUM The interatrial septum not well visualized. AORTA The aortic root and proximal ascending aorta are not well visualized. MITRAL VALVE Structurally normal mitral valve. No mitral valve stenosis or regurgitation. AORTIC VALVE Trileaflet aortic valve. No aortic valve stenosis or regurgitation. TRICUSPID VALVE There is trace tricuspid valve regurgitation. PULMONARY VALVE No pulmonary valve regurgitation or stenosis. VESSELS The inferior vena cava was not well visualized. PERICARDIUM No pericardial effusion. Mariel Witt MD (Electronically Signed) Final Date:17 June 2018 17:59
--- NOTE | 2018-06-18 14:50 | TR ---
Date Performed: 06/17/2018 Time Performed: 11:28:55 DOCTOR: Chris San DRUG LIST: CLINICAL HISTORY: RBBB REASON FOR TEST: RBBB REASON FOR ENDING: OBSERVATION: CONCLUSION: COMMENTS: Lexiscan stress test was performed under standard four minute protocol. Radionuclide was injected one minute prior to ending the test. No electrocardiographic abormalities were present t o suggest ischemia. Nuclear imaging and interpretation are pending.
--- NOTE | 2018-06-21 01:36 | HM ---
Date Performed: 06/17/2018 Time Performed: 18:00:00 HOOKUP DATE: 06/17/18 06:00:00 PM Sat ANALYSIS START TIME: 06/17/2018 6:05:00 PM ANALYSIS END TIME: 06/18/2018 6:09:00 PM PATIENT AGE: 48 PATIENT HEIGHT: 68 PATIENT WEIGHT DRUG LIST: ROOM [id number] PATIENT DIAGNOSIS: NEAR SYNCOPE PALPITATIONS TEST NARRATIVE: The patient's average heart rate was 68 BPM. Heart rates greater than 120 B PM were noted < 1% of the time. Heart rates less than 50 BPM were noted < 1% of the time. No billy ses exceeding 2.0 seconds were noted. 338 ventricular ectopics, which represented < 1% of the tot al beat count, were noted. The highest ventricular ectopic frequency occurred from 01:00 PM to 02:00 PM Sun. During this time 50 VE(s) occurred. Ventricular ectopics were observed as 338 isolated tamiko t(s) only. No couplets or runs were noted. 188 supraventricular ectopics, which represented < 1% of the total beat count, were noted. The highest supraventricular ectopic frequency occurred from 0 7:00 PM to 08:00 PM Sat. During this time 44 SVE(s) occurred. No episodes of ST depression (defi russ as -1.0 mm or more) were noted in channel 1. No episodes of ST depression (defined as -1.0 mm or more) were noted in channel 2. No episodes of ST depression (defined as -1.0 mm or more) were noted in channel 3. NO DIARY ENTRIES WERE RECORDED BY PATIENT TEST INTERPRETATION: 1) Underlying Sinus rhythm 2) Occasional PVC/PAC, short 3 beat run of PAT 3) No other arrhythmias noted 4) No pauses noted 5) N o diary of symptoms Signed by : Afia Perez
== END 2018-06-17 19:23 | disposition home or self-care (01) ==
LOC: PHEDA 18:30 → PHED 18:30 → PH3 22:04
PROVIDERS: ADMIT Hospitalist; ATTEND Hospitalist
CPT/HCPCS: 71010; 71045; 78452; 80053; 80307; 81001; 82550; 82552; 84443; 84484; 85025; 85379; 87275; 87276; 87804; 93005; 93017; 93225; 93306; 93880; 99285; A9502; G0378; J2785; J7030; Q9969